=== PATIENT | male | born 1980 | race American Indian/Alaskan Native ===

== ENCOUNTER 2020-11-10 11:31 | Emergency (ER) | payer SELFPAY ==
--- NOTE | 2020-11-10 11:58 | Event Note ---
ED Screening Note ED Screening Note: FLANK PAIN HX STONES WILL NOT STAND UP This initial assessment/diagnostic orders/clinical plan/treatment(s) is/are subject to change based on patients health status, clinical progression and re- assessment by fellow clinical providers in the ED. Further treatment and workup at subsequent clinical providers discretion. Patient/guardian urged not to elope from the ED as their condition may be serious if not clinically assessed and managed. Initial orders include: RO K STONE
[2020-11-10 14:05] LABS: Basophils % (Auto) 0.3 % (0.0-1.8); Eosinophils % (Auto) 0.2 % (0.0-4.3); Hematocrit 45.7 % (35.5-45.6); Lymphocytes # (Auto) 1.6 K/mm3 (1.2-5.4); Lymphocytes % (Auto) 22.4 % (13.4-35.0); Mean Corpuscular HGB Conc 33 % (32-34); Mean Corpuscular Volume 87 fl (84-94); Monocytes # (Auto) 0.5 K/mm3 (0.0-0.8); Monocytes % (Auto) 7.4 % (0.0-7.3); Platelet Count 320 K/mm3 (140-440); Red Blood Count 5.24 M/mm3 (3.65-5.03); Red Cell Distribution Width 13.5 % (13.2-15.2)
[2020-11-10 14:18] LABS: Bilirubin,Urine NEG (Negative); Blood,Urine LG (Negative); Color,Urine Yellow (Yellow); Mucus,Urine 3+ /HPF; RBC,Urine > 182.0 /HPF (0.0-6.0)
[2020-11-10 14:21] LABS: Alanine Aminotransferase 25 units/L (7-56); Albumin 4.6 g/dL (3.9-5); BUN/Creatinine Ratio 8; Blood Urea Nitrogen 8 mg/dL (9-20); Calcium 9.5 mg/dL (8.4-10.2); Hemolysis Index 4
--- NOTE | 2020-11-10 15:37 | Cat Scan Report ---
CT ABDOMEN AND PELVIS WITHOUT CONTRAST HISTORY: Flank pain COMPARISON: None TECHNIQUE: Routine abdominal and pelvic CT exam performed without contrast. Lack of intravenous cont rast limits evaluation of the vascular and solid organs.. All CT scans at this location are performed using CT dose reduction for ALARA by means of automated exposure control. FINDINGS: CT ABDOMEN: Lung Bases: No significant abnormality. Liver: No significant abnormality. Biliary: No significant abnormality. Spleen: No significant abnormality. Unenlarged. Pancreas: No significant abnormality. Adrenals: No significant abnormality. Kidneys: There is a nonobstructing 2 mm stone in the mid right kidney. There is also mild right hydro nephrosis due to a 3 mm right UVJ stone. Lymphatics: No lymphadenopathy. Vasculature: No significant abnormality. Bowel/Peritoneum: No significant abnormality. No free air. No free fluid. Normal appendix. CT PELVIC: : No significant abnormality. Lymphatics: No lymphadenopathy. Osseous Structures: No aggressive appearing osseous lesions. Additional Findings: None IMPRESSION: 1. Mild right hydroureteronephrosis due to 3 mm right UVJ stone. 2. Additional tiny nonobstructing stone is also present in the right kidney. Signer Name: Juan Almazan MD Signed: 11/10/2020 3:32 PM Workstation Name: [id number]
[2020-11-10] MEDS ORDERED: SODIUM CHLORIDE 0.9% 1000 ML 1,000 ML IV ONE (15:41)
[2020-11-10] MEDS ORDERED: ONDANSETRON 4 MG/2 ML INJ IV ONE (16:38)
[2020-11-10] MEDS ORDERED: MORPHINE 4 MG/1 ML INJ IV ONE (16:38)
[2020-11-10] MEDS ORDERED: KETOROLAC 30 MG/1 ML INJ IV ONE (16:38)
--- NOTE | 2020-11-10 16:41 | Emergency Department Report ---
ED Abdominal Pain HPI - General Chief Complaint: Abdominal Pain Stated Complaint: KIDNEY STONES Time Seen by Provider: 11/10/20 11:57 Source: patient Mode of arrival: Ambulatory Limitations: No Limitations - History of Present Illness Initial Comments: Patient is 40 years old male with previous history of kidney stone. Patient presented to the ER complaining of right flank pain that radiated down to his right groin and suprapubic area. Patient rated his pain as 7 out of 10, intermittent with no fever or chills. Patient also denies any nausea or v omiting. No chest pain or shortness of breath. MD Complaint: flank pain -: Sudden, Last night Location: R flank Radiation: suprapubic Migration to: no migration Severity: moderate Severity scale (0 -10): 6 Quality: cramping - Related Data Allergies Allergy/AdvReac Type Severity Reaction Status Date / Time No Known Allergies Allergy Unverified 11/10/20 11:55 ED Review of Systems ROS: Stated complaint: KIDNEY STONES Other details as noted in HPI Comment: All other systems reviewed and negative Constitutional: denies: chills, fever Respiratory: denies: cough, shortness of breath, SOB with exertion, SOB at rest, wheezing Cardiovascular: denies: chest pain Gastrointestinal: abdominal pain. denies: nausea, vomiting, diarrhea, constipation, hematemesis, melena, hematochezia Genitourinary: hematuria Neurological: denies: headache, weakness ED Past Medical Hx - Past Medical History Additional medical history: H/O KIDNEY STONES - Social History Smoking Status: Never Smoker Substance Use Type: None ED Physical Exam - General Limitations: No Limitations General appearance: alert, in no apparent distress - Head Head exam: Present: atraumatic, normocephalic, normal inspection - Eye Eye exam: Present: normal appearance - ENT ENT exam: Present: normal exam, normal orophraynx, mucous membranes moist - Neck Neck exam: Present: normal inspection, full ROM. Absent: tenderness, meningismus - Respiratory Respiratory exam: Present: normal lung sounds bilaterally - Cardiovascular Cardiovascular Exam: Present: regular rate, normal rhythm, normal heart sounds - GI/Abdominal GI/Abdominal exam: Present: soft, normal bowel sounds. Absent: distended, tenderness, guarding, rebound, rigid, organomegaly, mass, bruit, pulsatile mass, hernia - Back Exam Back exam: Present: normal inspection, full ROM. Absent: CVA tenderness (R), CVA tenderness (L), muscle spasm, paraspinal tenderness, vertebral tenderness - Neurological Exam Neurological exam: Present: alert, oriented X3, CN II-XII intact, normal gait, reflexes normal. Absent: motor sensory deficit - Psychiatric Psychiatric exam: Present: normal mood - Skin Skin exam: Present: warm, intact, normal color ED Course Vital Signs 11/10/20 11/10/20 11:50 17:00 Temperature 97.8 F Pulse Rate 74 Respiratory 18 18 Rate Blood Pressure 122/79 O2 Sat by Pulse 96 Oximetry ED Medical Decision Making - Lab Data Result diagrams: 11/10/20 13:37 11/10/20 13:37 - Radiology Data Radiology results: report reviewed - Medical Decision Making Patient is 40 years old male with previous history of kidney stone. Patient presented to the ER complaining of right flank pain that radiated down to his right groin and suprapubic area. Patient rated his pain as 7 out of 10, intermittent with no fever or chills. Patient also denies any nausea or vomiting. No chest pain or shortness of breath. Patient received morphine, Zofran and Toradol and normal saline. Patient stated that he is feeling much better. Patient given prescription for tramadol and Zofran and Flomax and advised to follow-up with a urologist in the next 2 to 3 days and also to follow-up with his primary care physician in the next 2 to 3 days and to return to the ER if symptoms not improved or if he develop any new symptoms. Critical care attestation.: If time is entered above; I have spent that time in minutes in the direct care of this critically ill patient, excluding procedure time. ED Disposition Clinical Impression: Acute left flank pain, Ureteric colic Disposition: - TO HOME OR SELFCARE Is pt being admited?: No Condition: Stable Instructions: Kidney Stones Referrals: PRIMARY CARE, [Primary Care Provider] - 3-5 Days ОЛЕГ YUSUF MD [Staff Physician] - 3-5 Days
[2020-11-10 17:22] VITALS: BP 124/82
== END 2020-11-10 17:23 | disposition home or self-care (01) ==
LOC: ED 11:31
DX: N23 Unspecified renal colic (principal)
CPT/HCPCS: 36415; 74176; 80053; 81001; 83690; 85025; 87086; 96361; 96374; 96375; 99284; J1885; J2270; J2405; J7030